=== PATIENT | male | born 1975 | race Caucasian/White ===

== ENCOUNTER 2016-08-03 11:30 | Emergency (ER) | payer OTHER ==
--- NOTE | 2016-08-03 12:25 | ED Physician Documentation ---
PD HPI HEADACHE - Stated complaint Stated Complaint: SWEATING/MIGRAINE - Chief complaint Chief Complaint: Neuro - History obtained from History obtained from: Patient - History of Present Illness Timing - onset: How many hours ago (4) Timing - onset during: Light activity Timing - details: Gradual onset Worst headache ever?: Worst headache ever? (Not worst headache ever, but different than previous headaches.) Location: Global Associated symptoms: Nausea. No: Fever, Vomiting, Weakness, Numbness Similar symptoms before: Has not had sx before, Other (History of CVA in April 2016.) - Additional information Additional information: The patient is a 40-year-old male who presents with headache that started about 4 hours prior to arrival while at work. It was gradual in onset, and is different from headaches he has had in the past. He reports associated nausea, but denies vomiting. He denies fever, visual disturbance, numbness or weakness. He feels generally tired. Past medical history is significant for CVA in April 2016. He takes one baby aspirin daily. Review of Systems Constitutional: reports: Fatigue. denies: Fever Eyes: denies: Decreased vision, Photophobia Ears: denies: Tinnitus/ringing Nose: denies: Congestion Throat: denies: Sore throat Cardiac: denies: Chest pain / pressure Respiratory: denies: Dyspnea, Cough GI: reports: Nausea. denies: Abdominal Pain, Vomiting : denies: Dysuria Skin: denies: Rash Musculoskeletal: denies: Neck pain, Back pain Neurologic: reports: Headache. denies: Focal weakness, Numbness, Altered mental status PD PAST MEDICAL HISTORY - Past Medical History Past Medical History: Yes Cardiovascular: None Respiratory: None Neuro: CVA (April 2016.) Endocrine/Autoimmune: None Psych: ADD/ADHD - Past Surgical History Ortho: Other (Achilles tendon repair) - Present Medications Home Medications: Ambulatory Orders Medication Instructions Recorded Confirmed Aspirin 81 mg PO DAILY 08/03/16 08/03/16 - Allergies Allergies/Adverse Reactions: Allergies Allergy/AdvReac Type Severity Reaction Status Date / Time No Known Drug Allergies Allergy Verified 08/03/16 12:57 - Social History Does the pt smoke?: No Smoking Status: Never smoker PD ED PE NORMAL - Vitals Vital signs reviewed: Yes (Initially hypertensive, but normotensive at time of discharge.) - General General: Alert and oriented X 3, Well developed/nourished - HEENT HEENT: Atraumatic, PERRL, EOMI, Ears normal, Pharynx benign, Other (Fundi with sharp disc margins, without papilledema.) - Neck Neck: Supple, no meningeal sign, No adenopathy, No JVD - Cardiac Cardiac: RRR, No murmur - Respiratory Respiratory: No respiratory distress, Clear bilaterally - Abdomen Abdomen: Soft, Non tender - Back Back: No CVA TTP - Derm Derm: No rash - Extremities Extremities: No edema, No calf tenderness / cord - Neuro Neuro: Alert and oriented X 3, 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, No motor deficit, No sensory deficit, Normal speech Results - Vitals Vitals: Oxygen O2 Source Room air - EKG (time done) 11:56 Rate: Rate (enter#) (47) Rhythm: Sinus bradycardia [place]: Normal QRS: LVH Ischemia: Normal ST segments Computer interpretation: Agree with computer - Labs Labs: Laboratory Tests 08/03/16 08/03/16 12:34 12:34 WBC 11.6 H RBC 5.11 Hgb 15.0 Hct 43.9 MCV 85.9 MCH 29.4 MCHC 34.2 RDW 13.6 Plt Count 245 MPV 7.1 L Neut # 10.2 H Lymph # 1.0 L [place] # 0.4 Eos # 0.0 Baso # 0.1 Absolute Nucleated RBC 0.00 Nucleated RBCs 0.0 Sodium 139 Potassium 4.2 Chloride 100 L Carbon Dioxide 30 Anion Gap 9.0 BUN 17 Creatinine 1.0 Estimated GFR (MDRD) 82 L Glucose 130 H Calcium 9.7 Total Bilirubin 1.1 H AST 33 ALT 73 H Alkaline Phosphatase 77 Total Protein 7.9 Albumin 4.9 Globulin 3.0 Albumin/Globulin Ratio 1.6 Lipase 13 L - Rads (name of study) Head CT w/o Radiology: Prelim report reviewed, EMP read contemporaneously, See rad report ( No acute intracranial abnormality.) PD MEDICAL DECISION MAKING - ED course Complexity details: reviewed results, re-evaluated patient, considered differential, d/w patient ED course: The underlying cause for the patient's headache is uncertain. Head CT reveals no anatomic intracranial abnormality. CBC and chemistry panel are unremarkable. His presentation does not suggest meningitis, intracranial hemorrhage, temporal arteritis, nor pseudotumor cerebri. Treatment in the emergency department included administration of normal saline 1 L IV, Compazine 10 mg IV, and Benadryl 50 mg IV. His symptoms resolved with the above treatment. I discussed with him and his 2 male companions the results of his workup, symptomatic treatment and outpatient follow-up, as well as potentially worrisome signs or symptoms that should prompt reevaluation in the emergency department. Departure - Departure Disposition: 01 Home, Self Care Clinical Impression: Headache Qualifiers: Headache type: unspecified Headache chronicity pattern: acute headache Intractability: not intractable Qualified Code(s): R51 - Headache Condition: Stable Instructions: ED Cephalgia Unspecified Follow-Up: JEANNE Harman [Provider Group] Comments: Drink plenty of fluids. If you develop recurrent headache, try ibuprofen or Naprosyn. Follow up with your primary physician or return to the emergency department if you develop recurrent or increasing headache, persistent vomiting, or otherwise worsening symptoms. Discharge Date/Time: 08/03/16 14:20
[2016-08-03 12:45] LABS: BASOPHILS # (AUTO) 0.1 10^3/uL (0.0-0.1); BASOPHILS % (AUTO) 0.5 %; EOSINOPHILS % (AUTO) 0.4 %; HCT - HEMATOCRIT 43.9 % (42.0-52.0); LYMPHOCYTES % (AUTO) 8.6 %; MEAN CORPUSCULAR HEMOGLOBIN 29.4 pg (27.0-31.0); MEAN CORPUSCULAR HGB CONC 34.2 g/dL (32.0-36.0); MEAN CORPUSCULAR VOLUME 85.9 fL (80.0-94.0); MEAN PLATELET VOLUME 7.1 fL (7.4-11.4); MONOCYTES # (AUTO) 0.4 10^3/uL (0.0-1.0); NEUTROPHILS # (AUTO) 10.2 10^3/uL (1.5-6.6); NEUTROPHILS % (AUTO) 87.5 %; RED BLOOD COUNT 5.11 10^6/uL (4.70-6.10); RED CELL DISTRIBUTION WIDTH 13.6 % (12.0-15.0); UNCORRECTED WHITE BLOOD COUNT 11.6 x10^3/uL; WHITE BLOOD COUNT 11.6 x10^3/uL (4.8-10.8)
[2016-08-03 12:58] LABS: ALBUMIN/GLOBULIN RATIO 1.6 (1.0-2.2); BILIRUBIN,TOTAL 1.1 mg/dL (0.2-1.0); CALCIUM 9.7 mg/dL (8.5-10.3); POTASSIUM 4.2 mmol/L (3.5-5.0); TOTAL PROTEIN 7.9 g/dL (6.7-8.2)
--- NOTE | 2016-08-03 12:58 | CT Preliminary Report ---
Exam: CT Head W/O IMPRESSION: No acute intracranial abnormality. [facility] SITE ID: [id number]
[2016-08-03] MEDS ORDERED: PROCHLORPERAZINE 10 MG/2 ML VIAL IVP STA (13:01)
[2016-08-03] MEDS ORDERED: SODIUM CHLORIDE 0.9% 1,000 ML IV ONE (13:01)
--- NOTE | 2016-08-03 13:01 | CT Report ---
EXAM: CT HEAD EXAM DATE: 08/03/2016 12:50 PM. CLINICAL HISTORY: Headache, different from prior headaches. COMPARISON: None. TECHNIQUE: Multiaxial CT images were obtained from the foramen magnum to the vertex. IV contrast: Non e. Reformats: Coronal. In accordance with CT protocol optimization, one or more of the following dose reduction techniques w ere utilized for this exam: automated exposure control, adjustment of mA and/or KV based on patient s ize, or use of iterative reconstructive technique. FINDINGS: Parenchyma: No intraparenchymal hemorrhage. No evidence of mass, midline shift, or CT findings of inf arction. Paz-white differentiation is distinct. Extraaxial Spaces: Normal for age. No subdural or epidural collections identified. Ventricles: Normal in size and position. Sinuses: Imaged paranasal sinuses, orbits, and mastoids show no significant abnormality. Bones: No evidence of fracture or calvarial defect. Other: None. IMPRESSION: No acute intracranial abnormality. [facility] Referring Provider Line: [phone] SITE ID: [id number]
[2016-08-03] MEDS ORDERED: diphenhydrAMINE INJ 50 MG/ML VIAL IVP STA (13:02)
[2016-08-03] MEDS ORDERED: diphenhydrAMINE INJ 50 MG/ML VIAL ONE (13:07)
[2016-08-03] MEDS ORDERED: PROCHLORPERAZINE 10 MG/2 ML VIAL ONE (13:08)
[2016-08-03 13:47] VITALS: BP 118/79
== END 2016-08-03 14:20 | disposition home or self-care (01) ==
LOC: ED 11:30
DX: R51 Headache (principal); R11.0 Nausea; R00.1 Bradycardia, unspecified; Z86.73 Personal history of transient ischemic attack (TIA), and cerebral infarction without residual deficits; Z79.82 Long term (current) use of aspirin
CPT/HCPCS: 36415; 70450; 80053; 83690; 85025; 93005; 93010; 96374; 96375; 99283; 99284